=== PATIENT | female | born 1955 | race Caucasian/White ===

== ENCOUNTER 2016-04-17 15:30 | Outpatient (RCR) ==
--- NOTE | 2016-03-27 16:43 | RS.OPPTDN ---
Subjective Date of Note: 03/27/16 Visit #: 11 Date of Evaluation: 02/24/16 Payer Source: MEDICARE Treatment Diagnosis: Right knee pain, knee effusion, knee stiffness, s/p TKA Current Subjective/complaints:: Patient states that she has had increased pain and had redness around the incision over the weekend and yesterday. She explains she had a very busy weekend with watching grandson, attending wedding rehearsal and wedding, with also helping prepare meals. She says she was scared she would have to have her knee manipulated. States she does not take the pain meds prescribed because they make her nauseated (suggested her to call her MD to check if there is any different kind to relieve and prepare her for PT sessions). *Precautions: TKA 02/21/16 Pain Assessment - Pain Description Pain Location: right knee (and right hip during ROM) Pain Description: c/o burning to the R shoulder Current Pain Intensity: Elevated today - Treatment Modality: Electrical Stim Unattended Parameters/Method Applied: hivolt 4 large pads @ 135 pk volts x 20 mins after therex R knee Patient Position: Supine - Heat/Cryotherapy Treatment: Cryotherapy (over knee and lower leg with estim) Interventions - Exercise/Activities/Manual Therapy Exercises/Activities: PROM right knee flexion and extension. Heel cord stretching. AP's, QS, heel slides. SAQ's 4# 3s/10reps. Green theraband for ankle df and ham curls, 3s/10reps each. SLR 2s/10reps. Hip abd 10reps. Green theraband for hip adduction and hip abduction 2s/10reps each. Ham sets with ball under heel. PROM and ham/heel cord stretching in supine. Stretching for knee extension with foot over bolster. In sitting, heel slides, LAQ with 4#, and green theraband for ham curl. No step ups due to increased activity over the past several days. Total minutes of Exercise: 34 Manual Therapy: na HOME EXERCISE PROGRAM: AP's, QS, heel slide, hip abd/add, SAQ's, isometric hip add, sitting heel slides. - Charges Total Direct Minutes: 34 Total Treatment Time: 54 Procedures billed for this date of service:: cp, estim (un), ex2 Assessment: Assumed patient's increased activity load over the weekend probably resulted in her elevated pain. Her knee appears to be only slightly pink along the incision in general, but no significant warmth, swelling, or tenderness to the calf. ROM demonstrates improved flexion, despite c/o's. Patient to contact MD to see if there is any other type of pain meds that could be offered. Patient Education: Education of diagnosis, Body/Joint mechanics, Home Exercise Program, Home Safety, Activity Modification, Education of Plan of Care Patient demonstrates compliance with HEP?: Yes Short Term Goals Goal #1: Pt independent with basic HEP. Goal to be met by: 03/12/16 Progress towards Goal:: Met Goal #2: Right knee extension to -2 degrees. Goal to be met by: 03/12/16 Progress towards Goal:: Progressing Goal #3: Right knee flexion to 105 degrees. Goal to be met by: 03/12/16 Progress towards Goal:: Met Goal #4: Patient to demonstrate good right knee quad control. Goal to be met by: 03/12/16 Progress towards Goal:: Met Group Home Goals Goal #1: Pt knows HEP and to continue with exercises after D/C from therapy. Goal to be met by: 04/12/16 Progress towards goal: Progressing Goal #2: Score on LE functional scale less than 39% impaired. Goal to be met by: 04/12/16 Progress towards goal: Progressing Goal #3: Pt to amb. without an assistive device community distances w/ good safety. Goal to be met by: 04/12/16 (100%) Progress towards goal: Met Goal #4: Right knee AROM WFL's to perform all selfcare and ADL's without difficulty. Goal to be met by: 04/12/16 Progress towards goal: Progressing Plan PLAN OF CARE EXPIRES ON:: 04/12/16 ORDER # VISITS AND/OR THROUGH DATE: 04/12/16 PLAN: Progress Exercises
--- NOTE | 2016-03-28 16:18 | RS.OPPTDN ---
Subjective Date of Note: 03/28/16 Visit #: 12 Date of Evaluation: 02/24/16 Payer Source: MEDICARE Treatment Diagnosis: Right knee pain, knee effusion, knee stiffness, s/p TKA *Precautions: TKA 02/21/16 Pain Assessment - Pain Description Pain Location: right knee (and right hip during ROM) Pain Description: Tightness, Aching Current Pain Intensity: 6/10 Interventions - Exercise/Activities/Manual Therapy Exercises/Activities: PROM right knee flexion and extension. Heel cord stretching. AP's, QS, heel slides. SAQ's 3# 3s/10reps. Green theraband for ankle df and ham curls, 3s/10reps each. SLR 2s/10reps. PROM and ham/heel cord stretching in supine. Stretching for knee extension with foot over bolster. In sitting, heel slides, LAQ with 3#, and green theraband for ham curl. Activity modification was discussed to caution pt not to over work her knee or leg to allow irritation to diminish. She verbalized understanding. Manual Therapy: na HOME EXERCISE PROGRAM: AP's, QS, heel slide, hip abd/add, SAQ's, isometric hip add, sitting heel slides. - Charges Total Direct Minutes: 45 Total Treatment Time: 45 Procedures billed for this date of service:: ther ex X 3 Patient Education: Activity Modification Patient demonstrates compliance with HEP?: Yes Short Term Goals Goal #1: Pt independent with basic HEP. Goal to be met by: 03/12/16 Progress towards Goal:: Met Goal #2: Right knee extension to -2 degrees. Goal to be met by: 03/12/16 Progress towards Goal:: Progressing Goal #3: Right knee flexion to 105 degrees. Goal to be met by: 03/12/16 Progress towards Goal:: Met Goal #4: Patient to demonstrate good right knee quad control. Goal to be met by: 03/12/16 Progress towards Goal:: Met Agency Trainer Goals Goal #1: Pt knows HEP and to continue with exercises after D/C from therapy. Goal to be met by: 04/12/16 Progress towards goal: Progressing Goal #2: Score on LE functional scale less than 39% impaired. Goal to be met by: 04/12/16 Progress towards goal: Progressing Goal #3: Pt to amb. without an assistive device community distances w/ good safety. Goal to be met by: 04/12/16 (100%) Progress towards goal: Met Goal #4: Right knee AROM WFL's to perform all selfcare and ADL's without difficulty. Goal to be met by: 04/12/16 Progress towards goal: Progressing Plan PLAN OF CARE EXPIRES ON:: 04/12/16 ORDER # VISITS AND/OR THROUGH DATE: 04/12/16 PLAN: Continue Plan of Care
--- NOTE | 2016-03-30 17:33 | RS.OPPTDN ---
Subjective Date of Note: 03/30/16 Visit #: 14 Date of Evaluation: 02/24/16 Payer Source: MEDICARE Treatment Diagnosis: Right knee pain, knee effusion, knee stiffness, s/p TKA Current Subjective/complaints:: Patient reports feeling like she needs more therapy. Reports difficulty with prolonged standing and states she has 4 stairs that she has to go up and down to get her mail with no rail. Reports continued pain in the right knee. She feels like her pain is mostly due to a cyst on the posterior-lateral aspect of the knee joint. *Precautions: TKA 02/21/16 Pain Assessment - Pain Description Pain Location: right knee (and right hip during ROM) Pain Description: Tightness, Aching Pain Description: c/o burning to the R shoulder Current Pain Intensity: 09/01 Interventions - Exercise/Activities/Manual Therapy Exercises/Activities: Performs on stationary bike X 6 mins, patient stops due to pain in posterior aspect of the knee. PROM right knee flexion and extension. Heel cord stretching. AP's, QS, heel slides. SAQ's 3# 3s/10reps. Green theraband for ankle df and ham curls, 3s/10reps each. SLR 2s/10reps. PROM and ham/heel cord stretching in supine. Stretching for knee extension with foot over bolster. In sitting, heel slides, LAQ with 3#, and green theraband for ham curls. Grades I-III joint mobs into distraction performed to facilitate increase ROM. Total minutes of Exercise: X 47 mins Manual Therapy: na HOME EXERCISE PROGRAM: AP's, QS, heel slide, hip abd/add, SAQ's, isometric hip add, sitting heel slides. - Objective Findings Observations,measurements,etc.: Right knee active extension to -10 degrees and flexion to 106 degrees. - Charges Total Direct Minutes: 47 mins Total Treatment Time: 53 mins Procedures billed for this date of service:: EX3 Assessment: Patient reports continued knee pain. She demonstrates limited active flexion and extension of the right knee. She continues to be limited with her tolerance for prolonged standing and needs to be able to ascend/ descend her steps at home safely. She demonstrates potential to gain further benefit from skilled therapy for 2-3 more weeks. Patient Education: Education of diagnosis, Body/Joint mechanics, Home Safety, Education of Plan of Care Patient demonstrates compliance with HEP?: Yes Short Term Goals Goal #1: Pt independent with basic HEP. Goal to be met by: 03/12/16 Progress towards Goal:: Met Goal #2: Right knee extension to -2 degrees. Goal to be met by: 04/09/16 Progress towards Goal:: Progressing Goal #3: Right knee flexion to 115 degrees for functional ROM. Goal to be met by: 03/12/16 Progress towards Goal:: Met Goal #4: Patient to demonstrate good right knee quad control. Goal to be met by: 03/12/16 Progress towards Goal:: Met Intermediate Goals Goal #1: Pt knows HEP and to continue with exercises after D/C from therapy. Goal to be met by: 04/20/16 Progress towards goal: Progressing Goal #2: Score on LE functional scale less than 39% impaired. Goal to be met by: 04/20/16 Progress towards goal: Progressing Goal #3: Pt to amb. without an assistive device community distances w/ good safety. Goal to be met by: 04/12/16 (100%) Progress towards goal: Met Goal #4: Right knee AROM WFL's to perform all selfcare and ADL's without difficulty. Goal to be met by: 04/20/16 Progress towards goal: Progressing Plan PLAN OF CARE EXPIRES ON:: 04/20/16 ORDER # VISITS AND/OR THROUGH DATE: 04/20/16 PLAN: Progress Exercises
--- NOTE | 2016-04-02 16:08 | RS.CXNS ---
Date of scheduled appointment: 04/02/16 Type: Cancel Reason for Cancel/NS: Per us due to not receiving continuation order yet
--- NOTE | 2016-04-04 16:36 | RS.OPPTDN ---
Subjective Date of Note: 04/04/16 Visit #: 15 Date of Evaluation: 02/24/16 Payer Source: MEDICARE Treatment Diagnosis: Right knee pain, knee effusion, knee stiffness, s/p TKA Current Subjective/complaints:: Patient says her pain is still behind her knee. Reports she feels if the swelling behind the knee was less, she would be doing quite well. She reports driving today to PT, so she did not take any pain meds. Reports ice/estim nearly takes pain away completely. *Precautions: TKA 02/21/16 Pain Assessment - Pain Description Pain Location: right knee posteriorally (and right hip during ROM) Pain Description: Tightness, Aching Pain Description: c/o burning to the R shoulder Current Pain Intensity: 6/10 - Treatment Modality: Electrical Stim Unattended Parameters/Method Applied: hivolt 4 large pads @ 140 pk volts x 15 mins after therex Patient Position: Supine - Heat/Cryotherapy Treatment: Cryotherapy (ant/post knee) Interventions - Exercise/Activities/Manual Therapy Exercises/Activities: PROM right knee flexion and extension. Heel cord stretching. AP's, QS, heel slides. SAQ's 3# 3s/10reps. Green theraband for ankle df and ham curls, 3s/10reps each. SLR 2s/10reps. PROM and ham/heel cord stretching in supine. Stretching for knee extension with foot over bolster. In sitting, heel slides, LAQ with 3#, and green theraband for ham curls. Grades I- III joint mobs into distraction performed to facilitate increase ROM. Performs on stationary bike X 6 mins, Total minutes of Exercise: 35 Manual Therapy: na HOME EXERCISE PROGRAM: AP's, QS, heel slide, hip abd/add, SAQ's, isometric hip add, sitting heel slides. - Charges Total Direct Minutes: 35 Total Treatment Time: 50 Procedures billed for this date of service:: cp, estim (un), ex2 Assessment: Patient now driving without difficulty, in which she did not take any pain meds. She is benja all progressive stretching well. She is working on stationary bike often at home. Patient Education: Education of diagnosis, Body/Joint mechanics, Home Exercise Program, Home Safety, Activity Modification, Education of Plan of Care Patient demonstrates compliance with HEP?: Yes Short Term Goals Goal #1: Pt independent with basic HEP. Goal to be met by: 03/12/16 Progress towards Goal:: Met Goal #2: Right knee extension to -2 degrees. Goal to be met by: 04/09/16 Progress towards Goal:: Progressing Goal #3: Right knee flexion to 115 degrees for functional ROM. Goal to be met by: 03/12/16 Progress towards Goal:: Met Goal #4: Patient to demonstrate good right knee quad control. Goal to be met by: 03/12/16 Progress towards Goal:: Met Confidential Secretary Goals Goal #1: Pt knows HEP and to continue with exercises after D/C from therapy. Goal to be met by: 04/20/16 Progress towards goal: Progressing Goal #2: Score on LE functional scale less than 39% impaired. Goal to be met by: 04/20/16 Progress towards goal: Progressing Goal #3: Pt to amb. without an assistive device community distances w/ good safety. Goal to be met by: 04/12/16 (100%) Progress towards goal: Met Goal #4: Right knee AROM WFL's to perform all selfcare and ADL's without difficulty. Goal to be met by: 04/20/16 Progress towards goal: Progressing Plan PLAN OF CARE EXPIRES ON:: 04/20/16 ORDER # VISITS AND/OR THROUGH DATE: 04/20/16 PLAN: Progress Exercises
--- NOTE | 2016-04-06 16:25 | RS.OPPTDN ---
Subjective Date of Note: 04/06/16 Visit #: 16 Date of Evaluation: 02/24/16 Payer Source: MEDICARE Treatment Diagnosis: Right knee pain, knee effusion, knee stiffness, s/p TKA Current Subjective/complaints:: Patient says her knee felt really good after the last session. Reports if her pain behind the knee was less or gone, she would be "dancing around." Reports since she is driving, she is not taking pain meds prior to coming to PT. Reports taking pain pill once daily otherwise. She has had increased walking and errand running today, so she does express increased fatigue. *Precautions: TKA 02/21/16 Pain Assessment - Pain Description Pain Location: right knee posteriorally (and right hip during ROM) Pain Description: Tightness, Aching Pain Description: c/o burning to the R shoulder Current Pain Intensity: 09/01 - Treatment Modality: Electrical Stim Unattended Parameters/Method Applied: hivolt 4 pads x 15 mins at end of session @ 125-130 pk volts R knee Patient Position: Supine - Heat/Cryotherapy Treatment: Cryotherapy Interventions - Exercise/Activities/Manual Therapy Exercises/Activities: Begins with stationary bike x 6 mins for/retro. Stretching to right knee flexion and extension. Heel cord stretching. QS, heel slides. SAQ's 3# 3s/10reps. Green theraband for ankle df and ham curls, 3s /10reps each. SLR 2s/10reps. Stretching for knee extension with foot over bolster. Ball squeezes, hip abd. In sitting, heel slides, LAQ with 3#, and green theraband for ham curls. Grades I-III joint mobs into distraction performed to facilitate increase ROM. Performs on stationary bike X 6 mins, Total minutes of Exercise: 35 Manual Therapy: na HOME EXERCISE PROGRAM: AP's, QS, heel slide, hip abd/add, SAQ's, isometric hip add, sitting heel slides. - Charges Total Direct Minutes: 35 Total Treatment Time: 50 Procedures billed for this date of service:: cp, estim(un), ex2 Assessment: Patient has elevated fatigue and soreness remains at the posterior R knee since activity level was more today. Her pain is significantly reduced with modalities today as she does not take pain meds prior due to driving. Patient Education: Education of diagnosis, Body/Joint mechanics, Home Exercise Program, Home Safety, Activity Modification, Education of Plan of Care Patient demonstrates compliance with HEP?: Yes Short Term Goals Goal #1: Pt independent with basic HEP. Goal to be met by: 03/12/16 Progress towards Goal:: Met Goal #2: Right knee extension to -2 degrees. Goal to be met by: 04/09/16 Progress towards Goal:: Progressing Goal #3: Right knee flexion to 115 degrees for functional ROM. Goal to be met by: 03/12/16 Progress towards Goal:: Met Goal #4: Patient to demonstrate good right knee quad control. Goal to be met by: 03/12/16 Progress towards Goal:: Met Detention Goals Goal #1: Pt knows HEP and to continue with exercises after D/C from therapy. Goal to be met by: 04/20/16 Progress towards goal: Progressing Goal #2: Score on LE functional scale less than 39% impaired. Goal to be met by: 04/20/16 Progress towards goal: Progressing Goal #3: Pt to amb. without an assistive device community distances w/ good safety. Goal to be met by: 04/12/16 (100%) Progress towards goal: Met Goal #4: Right knee AROM WFL's to perform all selfcare and ADL's without difficulty. Goal to be met by: 04/20/16 Progress towards goal: Progressing Plan PLAN OF CARE EXPIRES ON:: 04/20/16 ORDER # VISITS AND/OR THROUGH DATE: 04/20/16 PLAN: Progress Exercises
--- NOTE | 2016-04-09 15:27 | RS.CXNS ---
Date of scheduled appointment: 04/09/16 Type: Cancel Reason for Cancel/NS: sick
--- NOTE | 2016-04-10 16:40 | RS.OPPTDN ---
Subjective Date of Note: 04/10/16 Visit #: 17 Date of Evaluation: 02/24/16 Payer Source: MEDICARE Treatment Diagnosis: Right knee pain, knee effusion, knee stiffness, s/p TKA Current Subjective/complaints:: Patient c/o continued posterior knee pain and feels tight. She says she performs HEP and is not resorting to pain meds for her relief. She uses ice prn. *Precautions: TKA 02/21/16 Pain Assessment - Pain Description Pain Location: right knee posteriorally (and right hip during ROM) Pain Description: Tightness, Aching Pain Description: c/o burning to the R shoulder Current Pain Intensity: 09/01 Interventions - Exercise/Activities/Manual Therapy Exercises/Activities: Begins with stationary bike x 6 mins for/retro. Stretching to right knee flexion and extension. Heel cord stretching. Patellar mobs, joint mobs grades I-III, QS, heel slides. SAQ's 3# 3s/10reps. Green theraband for ankle df and ham curls, 3s/10reps each. SLR 2s/10reps. Stretching for knee extension with foot over bolster. Ball squeezes, hip abd. In sitting, heel slides, LAQ with 3#, and green theraband for ham curls. Continued with more stretching in sitting. Measurements taken. Total minutes of Exercise: 38 Manual Therapy: na HOME EXERCISE PROGRAM: AP's, QS, heel slide, hip abd/add, SAQ's, isometric hip add, sitting heel slides. - Objective Findings Observations,measurements,etc.: Flexion to 111 degrees active in 90/90 position supine. Extension -6 degrees - Charges Total Direct Minutes: 38 Total Treatment Time: 38 Procedures billed for this date of service:: ex3 Assessment: Patient jammie improved flexibility after joint/patellar mobs. She maintains no form of pain meds prior to coming to PT and felt no need to have modalities today since she can use ice when she returns home. She demos less swelling to the posterior knee today and less tenderness with palpation throughout the knee with mobs. Less pink in color to the incision and no warmth felt surrounding it. Patient Education: Education of diagnosis, Body/Joint mechanics, Home Exercise Program, Home Safety, Activity Modification, Education of Plan of Care Patient demonstrates compliance with HEP?: Yes Short Term Goals Goal #1: Pt independent with basic HEP. Goal to be met by: 03/12/16 Progress towards Goal:: Met Goal #2: Right knee extension to -2 degrees. Goal to be met by: 04/09/16 Progress towards Goal:: Progressing Goal #3: Right knee flexion to 115 degrees for functional ROM. Goal to be met by: 03/12/16 Progress towards Goal:: Met Comments:: 111 active today Goal #4: Patient to demonstrate good right knee quad control. Goal to be met by: 03/12/16 Progress towards Goal:: Met [facility] Goals Goal #1: Pt knows HEP and to continue with exercises after D/C from therapy. Goal to be met by: 04/20/16 Progress towards goal: Progressing Goal #2: Score on LE functional scale less than 39% impaired. Goal to be met by: 04/20/16 Progress towards goal: Progressing Goal #3: Pt to amb. without an assistive device community distances w/ good safety. Goal to be met by: 04/12/16 (100%) Progress towards goal: Met Goal #4: Right knee AROM WFL's to perform all selfcare and ADL's without difficulty. Goal to be met by: 04/20/16 Progress towards goal: Progressing Plan PLAN OF CARE EXPIRES ON:: 04/20/16 ORDER # VISITS AND/OR THROUGH DATE: 04/20/16 PLAN: Progress Exercises
--- NOTE | 2016-04-13 14:36 | RS.OPPTDN ---
Subjective Date of Note: 04/12/16 Visit #: 18 Date of Evaluation: 02/24/16 Payer Source: MEDICARE Treatment Diagnosis: Right knee pain, knee effusion, knee stiffness, s/p TKA Current Subjective/complaints:: Patient says she has riddin her bike 4 times today. States she is now taking Tylenol for pain and it does help "take the edge off." *Precautions: TKA 02/21/16 Pain Assessment - Pain Description Pain Location: right knee posteriorally (and right hip during ROM) Pain Description: Tightness, Aching Pain Description: c/o burning to the R shoulder Current Pain Intensity: 09/01 Interventions - Exercise/Activities/Manual Therapy Exercises/Activities: Begins with stationary bike x 8 mins for/retro. Stretching to right knee flexion and extension. Heel cord stretching. Patellar mobs, joint mobs grades I-III, QS, heel slides with additional stretch at end range by HE[employer] COIL WINDER. SAQ's 3# 3s/10reps. Green theraband for ankle df and ham curls, 3s/10reps each. SLR 2s/10reps. Hip abd/add xonly 5 due to increased R hip pain. Stretching for knee extension with foot over bolster. Ball squeezes , hip abd. In sitting, heel slides, LAQ with 3#, and green theraband for ham curls. Continued with more stretching in sitting. Standing: hip flexion, ham curls, hip abd. Total minutes of Exercise: 42 Manual Therapy: na HOME EXERCISE PROGRAM: AP's, QS, heel slide, hip abd/add, SAQ's, isometric hip add, sitting heel slides. - Charges Total Direct Minutes: 42 Total Treatment Time: 42 Procedures billed for this date of service:: ex3 Assessment: Patient benja increased flexion stretching today. She still has pain into the R hip during SLR and hip abd causing her to stop at times. She demos improved extension benja with stretching over bolster as well. She is also taking Tylenol prior to PT so that she may withstand progressive stretching. Patient Education: Education of diagnosis, Body/Joint mechanics, Home Exercise Program, Home Safety, Activity Modification, Education of Plan of Care Patient demonstrates compliance with HEP?: Yes Short Term Goals Goal #1: Pt independent with basic HEP. Goal to be met by: 03/12/16 Progress towards Goal:: Met Goal #2: Right knee extension to -2 degrees. Goal to be met by: 04/09/16 Progress towards Goal:: Progressing Goal #3: Right knee flexion to 115 degrees for functional ROM. Goal to be met by: 03/12/16 Progress towards Goal:: Met Goal #4: Patient to demonstrate good right knee quad control. Goal to be met by: 03/12/16 Progress towards Goal:: Met Alf Goals Goal #1: Pt knows HEP and to continue with exercises after D/C from therapy. Goal to be met by: 04/20/16 Progress towards goal: Progressing Goal #2: Score on LE functional scale less than 39% impaired. Goal to be met by: 04/20/16 Progress towards goal: Progressing Goal #3: Pt to amb. without an assistive device community distances w/ good safety. Goal to be met by: 04/12/16 (100%) Progress towards goal: Met Goal #4: Right knee AROM WFL's to perform all selfcare and ADL's without difficulty. Goal to be met by: 04/20/16 Progress towards goal: Progressing Plan PLAN OF CARE EXPIRES ON:: 04/20/16 ORDER # VISITS AND/OR THROUGH DATE: 04/20/16 PLAN: Progress Exercises
--- NOTE | 2016-04-17 16:44 | RS.OPPTDN ---
Subjective Date of Note: 04/17/16 Visit #: 18 Date of Evaluation: 02/24/16 Payer Source: MEDICARE Treatment Diagnosis: Right knee pain, knee effusion, knee stiffness, s/p TKA Current Subjective/complaints:: Patient says she has done really well since having a decadron shot for pleurisy. Reports less swelling to her knee and pain as well as improved mobility. She says even though this was for her lungs , her knee was significantly better. *Precautions: TKA 02/21/16 Pain Assessment - Pain Description Pain Location: right knee posteriorally (and right hip during ROM) Pain Description: Tightness, Aching Pain Description: c/o burning to the R shoulder Current Pain Intensity: very mild to none Interventions - Exercise/Activities/Manual Therapy Exercises/Activities: Begins with stationary bike x 8 mins for/retro. Stretching to right knee flexion and extension. Heel cord stretching. Patellar mobs, joint mobs grades I-III, QS, heel slides with additional stretch at end range by YARN TESTER. SAQ's 3# 3s/10reps. Progressed to blue theraband for ankle df and ham curls, 3s/10reps each. SLR 2s/10reps. Hip abd/add xonly 5 due to increased R hip pain. Stretching for knee extension with foot over bolster. Ball squeezes, hip abd. In sitting, heel slides, LAQ with 3#, and green theraband for ham curls. Continued with more stretching in sitting. Standing: hip flexion, ham curls, hip abd, heel raises. Total minutes of Exercise: 45 Manual Therapy: na HOME EXERCISE PROGRAM: AP's, QS, heel slide, hip abd/add, SAQ's, isometric hip add, sitting heel slides. - Charges Total Direct Minutes: 45 Total Treatment Time: 45 Procedures billed for this date of service:: ex3 Assessment: Patient admits improved pain, mobility, and swelling following decadron injection recently. She demos improved flexion today and less swelling. Improved ease with all advancing therex. Patient Education: Education of diagnosis, Body/Joint mechanics, Home Exercise Program, Home Safety, Activity Modification, Education of Plan of Care Patient demonstrates compliance with HEP?: Yes Short Term Goals Goal #1: Pt independent with basic HEP. Goal to be met by: 03/12/16 Progress towards Goal:: Met Goal #2: Right knee extension to -2 degrees. Goal to be met by: 04/09/16 Progress towards Goal:: Progressing Goal #3: Right knee flexion to 115 degrees for functional ROM. Goal to be met by: 03/12/16 Progress towards Goal:: Met Goal #4: Patient to demonstrate good right knee quad control. Goal to be met by: 03/12/16 Progress towards Goal:: Met Halfway Goals Goal #1: Pt knows HEP and to continue with exercises after D/C from therapy. Goal to be met by: 04/20/16 Progress towards goal: Progressing Goal #2: Score on LE functional scale less than 39% impaired. Goal to be met by: 04/20/16 Progress towards goal: Progressing Goal #3: Pt to amb. without an assistive device community distances w/ good safety. Goal to be met by: 04/12/16 (100%) Progress towards goal: Met Goal #4: Right knee AROM WFL's to perform all selfcare and ADL's without difficulty. Goal to be met by: 04/20/16 Progress towards goal: Progressing Plan PLAN OF CARE EXPIRES ON:: 04/20/16 ORDER # VISITS AND/OR THROUGH DATE: 04/20/16 PLAN: Progress Exercises
--- NOTE | 2016-04-19 15:37 | RS.CXNS ---
Date of scheduled appointment: 04/19/16 Type: Cancel Reason for Cancel/NS: Patient called to cancel saying her MD released her from PT due to progress.
--- NOTE | 2016-04-24 13:18 | RS.OPPTDC ---
Date of Discharge: 04/19/16 Date of Evaluation: 02/24/16 Number of Visits: 17 Treatment Diagnosis: Right knee pain, knee effusion, knee stiffness, s/p TKA Current Complaints/Gains: Patient reports continued burning into the right shoulder. States it is hard for her to remember not to use the right UE since she is right hand dominant. She is very motivated to return to her normal use of the right UE. She reports taking care of her 2 year old grandchild. Pain Assessment - Pain Description Pain Location: right knee posteriorally (and right hip during ROM) Pain Description: Tightness, Aching Pain Description: c/o burning to the R shoulder Current Pain Intensity: very mild to none Functional Outcome Measure LE Functional Scale: 34 (On 03/20/2016) - G Codes & Severity Modifier G Codes & Modifier: DC Status - Mobility - CJ Source of G Code score: Findings on last PT visit. Interventions - Exercise/Activities/Manual Therapy Exercises/Activities: NA Manual Therapy: na HOME EXERCISE PROGRAM: NA - Charges Total Direct Minutes: NA Total Treatment Time: NA Procedures billed for this date of service:: NA Assessment Assessment: Patient did well with skilled PT intervention and was released by her orthopedic surgeon. She is independent with HEP and has resumed her normal activites and caring for her grandchildren. Short Term Goals Goal #1: Pt independent with basic HEP. Goal to be met by: 03/12/16 Progress towards Goal:: Met Goal #2: Right knee extension to -2 degrees. Goal to be met by: 04/09/16 Progress towards Goal:: Progressing Goal #3: Right knee flexion to 115 degrees for functional ROM. Goal to be met by: 03/12/16 Progress towards Goal:: Met Goal #4: Patient to demonstrate good right knee quad control. Goal to be met by: 03/12/16 Progress towards Goal:: Met Long-Term Goals Goal #1: Pt knows HEP and to continue with exercises after D/C from therapy. Goal to be met by: 04/20/16 Progress towards goal: Progressing Goal #2: Score on LE functional scale less than 39% impaired. Goal to be met by: 04/20/16 Progress towards goal: Progressing Goal #3: Pt to amb. without an assistive device community distances w/ good safety. Goal to be met by: 04/12/16 (100%) Progress towards goal: Met Goal #4: Right knee AROM WFL's to perform all selfcare and ADL's without difficulty. Goal to be met by: 04/20/16 Progress towards goal: Progressing Plan Reason for Discharge:: DC per MD release.
== END 2016-04-24 ==
PROVIDERS: ATTEND Orthopaedic Surgery
DX: Z96.651 Presence of right artificial knee joint (principal)

== ENCOUNTER 2016-06-22 10:32 | Outpatient (CLI) ==
--- NOTE | 2016-06-22 12:07 | DI ---
Examination: Seven radiographic images of the cervical spine. Comparison: 05/24/2015. Reason for study: Degenerative disc disease. FINDINGS: Operative changes are seen after anterior cervical discectomy and fusion spanning C3 to C 7. There is no evidence of hardware complication. There is maintenance of the cervical lordotic cu rve. Degenerative changes are seen with exuberant osteophyte formation at C2-C3. The prevertebral soft tissues are within normal limits. The dens is intact on the Lam view. Impression: 1. Stable operative changes after ACDF spanning C3-C7 with degenerative disc disease. 2. No evidence of hardware complication.
--- NOTE | 2016-06-22 12:21 | DI ---
Examination: Five radiographic images of the lumbar spine. Comparison: CT scan performed 09/01/2010. Reason for study: Degenerative disc disease. FINDINGS: No acute fracture or listhesis. Pedicle screw and alin fixation is seen spanning L5-S1. There is no evidence of periprosthetic fracture or hardware complication. The vertebral bodies and intervertebral body disc space heights are well maintained. There is multilevel degenerative disc d isease with anterior osteophyte formation and facet hypertrophy. The lumbar lordotic curve is maint ained. Impression: 1. No acute fracture or listhesis in the lumbar spine. 2. Multilevel degenerative disc disease with osteophyte and facet hypertrophy.
== END 2016-06-22 10:33 | disposition home or self-care (01) ==
LOC: RAD 10:32
PROVIDERS: ATTEND Pain Medicine Interventional Pain Medicine
DX: M96.1 Postlaminectomy syndrome, not elsewhere classified (principal); M50.31 Other cervical disc degeneration, high cervical region; M50.320 Other cervical disc degeneration, mid-cervical region, unspecified level; M51.36 Other intervertebral disc degeneration, lumbar region; M51.37 Other intervertebral disc degeneration, lumbosacral region

== ENCOUNTER 2016-09-07 09:32 | Outpatient (CLI) | payer OTHER ==
--- NOTE | 2016-09-07 10:37 | US ---
EXAM: Right breast ultrasound. History: Follow-up right breast mass. Comparison: Right breast ultrasound 11/19/2014 Technique: Multiple sonographic images through the right breast were obtained. Color duplex Dopple r was used to interrogate vascular flow. Findings: No significant interval change in the benign complicated cyst at 9 o'clock measuring 0.5 cm and no significant interval change in the benign cyst cluster at 6 o'clock measuring 0.5 cm. Impression: No sonographic evidence of malignancy. Recommend return to routine screening mammograp hy schedule. BIRADS 2
--- NOTE | 2016-09-07 10:38 | MAMMO ---
EXAM: Right digital diagnostic mammogram. History: Follow-up right breast mass. Comparison: Bilateral mammogram 01/19/2016 Findings: Right breast density is scattered. Stable benign nodule within the central right breast. There are no suspicious microcalcifications. Impression: No mammographic evidence for malignancy. Recommend return to routine screening mammogr aphy schedule. BIRADS 2
== END 2016-09-07 09:33 | disposition home or self-care (01) ==
LOC: RAD 09:32
PROVIDERS: ATTEND Internal Medicine
DX: R92.8 Other abnormal and inconclusive findings on diagnostic imaging of breast (principal); Z09 Encounter for follow-up examination after completed treatment for conditions other than malignant neoplasm

== ENCOUNTER 2016-09-19 12:09 | Outpatient (CLI) | payer OTHER ==
--- NOTE | 2016-09-19 12:52 | DI ---
EXAM: Chest two view, frontal and lateral views. HISTORY: Cardiomegaly. Cough. COMPARISON: 02/07/2016. FINDINGS: The heart size is normal. There is no pulmonary vascular congestion. The lungs are karlie r save for calcified granulomatous changes. No pleural effusion or pneumothorax is seen. No acute osseous abnormality identified. Degenerative changes present in the spine. ACDF changes noted. Cl ips are present in the upper abdomen. Since the prior study, there has been no significant interval change. IMPRESSION: No acute cardiopulmonary process.
== END 2016-09-19 12:10 | disposition home or self-care (01) ==
LOC: RAD 12:09
PROVIDERS: ATTEND Internal Medicine
DX: I51.7 Cardiomegaly (principal); R05 Cough

== ENCOUNTER 2017-05-20 06:38 | Outpatient (CLI) | END 2017-05-20 06:39 | disposition home or self-care (01) | LOC: CAR 06:38 | PROVIDERS: ATTEND Internal Medicine | DX: R07.9 Chest pain, unspecified (principal); R06.02 Shortness of breath ==

== ENCOUNTER 2017-05-21 06:39 | Outpatient (CLI) | payer OTHER ==
--- NOTE | 2017-05-21 09:44 | STRESSECHO ---
Date of Test: 05/21/2017 Reason for Exam: CHEST PAIN, SHORT OF BREATH, HYPERTENSION, FIBROMYALGIA Ordering Physician: AMBER MAYORGA Current Medications: DEXILANT, HECTOROL, NORCO, PRAVACHOL, ULORIC, WELLBUTRIN, LISINOPRIL, TIZANIDINE Physical Findings: S1, S2, NO S3 Resting EKG: SINUS RHYTHM, NO ACUTE CHANGES Target Heart Rate: 133 Max Heart Rate: 157 S-T SEGMENT STAGE MPH/GRADE HEART RATE BPM BLOOD PRESSURE MMHG RHYTHM 0 +/- ELEVATION DEPRESSION SYMPTOMS,COMMENTS At Rest 73 102/66 SR x NONE 1 1.7/10% 116 112/68 SR X NONE 2 2.5/12% 3 3.4/14% 4 4.2/16% 5 5.0/18% Immediately after 136 SR X SOB Durations of Exercise: 5:46 Maximum Heart Rate Reached: 136 Reason for Termination: SHORT OF BREATH 4 Minutes Post Exercise: HR 80 BPM, BP 118/68 MMHG, SR, +/-, NONE INTERPRETATION: 97% OXYGEN SATURATION WITH EXERCISE ON ROOM AIR 1. NO EVIDENCE OF ISCHEMIA BY ST-T WAVE 2. NO CHEST PAIN OR CHEST DISCOMFORT 3. NO ARRHYTHMIAS 4. BLOOD PRESSURE RESPONSE NORMAL NORMAL LEFT VENTRICULAR CONTRACTILITY RESTING AND POST EXERCISE MTDD
--- NOTE | 2017-05-21 09:48 | ECHOSTRESS ---
Date of Exam: 05/21/2017 Ordering Physician: AMBER MAYORGA Reason for Echo: CHEST PAIN, SHORT OF BREATH, STRESS TEST-NO ISCHEMIA M-Mode Normal Adult Results LV Dimensions Normal Adult Results AoV Opening excursions >1.6 LVEDD-base- 3.5-5.8 Ao root dimensions 2.0-3.7 LVESD-base- 3.1-4.6 L. Atrium dimensions 1.9-3.8 Post. Wall thickness 0.8-1.1 IV septum (thickness) 0.7-1.2 Post. Wall excursion 0.72-1.3 Septal motion Systolic motion R. Ventricular cavity 1.5-2.0 LVEF 60% Paradoxical septal wall motion 2-D: NORMAL LEFT VENTRICULAR CONTRACTILITY RESTING AND POST EXERCISE M-MODE: MV: AV: TV: PV: CHAMBER SIZE: WALL MOTION: NORMAL LEFT VENTRICULAR CONTRACTILITY RESTING AND POST EXERCISE PERICARDIUM: INTERPRETATION: 1. NORMAL LEFT VENTRICULAR CONTRACTILITY RESTING AND POST EXERCISE MTDD
--- NOTE | 2017-05-22 10:07 | MAMMO ---
EXAM: Digital screening mammogram with tomosynthesis and CAD HISTORY: Screening mammogram. COMPARISON: Mammogram 09/07/2016 and 01/19/2016 FINDINGS: Breast density is scattered fibroglandular. The central right breast nodule with small roro cifications is stable. There is no suspicious calcification or new nodule identified. There has been no significant interval change. IMPRESSION: 1. No new or suspicious calcification or nodule. 2. Stable central right breast nodule relatively unchanged since 2014. Recommendation: Annual screening mammogram. BIRADS category II: Benign findings
== END 2017-05-21 06:40 | disposition home or self-care (01) ==
LOC: CAR 06:39
PROVIDERS: ATTEND Internal Medicine
DX: Z12.31 Encounter for screening mammogram for malignant neoplasm of breast (principal); R07.9 Chest pain, unspecified; R06.02 Shortness of breath
CPT/HCPCS: 77067

== ENCOUNTER 2017-07-29 13:33 | Outpatient (CLI) ==
--- NOTE | 2017-07-29 14:33 | US ---
EXAM: Bilateral lower extremity venous doppler. HISTORY: Bilateral lower extremity pain and swelling. COMPARISON: None available. TECHNIQUE: Multiple grayscale and color doppler images were obtained. FINDINGS: There is normal flow, compressibility and augmentation of flow within the right and left c ommon femoral, greater saphenous, profunda, femoral, popliteal, posterior tibial, anterior tibial and peroneal veins. IMPRESSION: No evidence for right or left lower extremity deep vein thrombosis at the levels examined.
[2017-07-29 16:27] VITALS: BMI 39.6
== END 2017-07-29 13:34 | disposition home or self-care (01) ==
LOC: RAD 13:33
PROVIDERS: ATTEND Internal Medicine
DX: M79.89 Other specified soft tissue disorders (principal); M79.605 Pain in left leg; M79.604 Pain in right leg

== ENCOUNTER 2017-07-29 15:24 | Inpatient (IN) ==
[2017-07-29 16:27] VITALS: BMI 39.6
[2017-07-29] MEDS ORDERED: ATROPINE SULFATE PFS IVP PRN (17:08)
[2017-07-29] MEDS ORDERED: VISTARIL INJ IM PRN (17:08)
[2017-07-29] MEDS ORDERED: MORPHINE 4 MG/ML VIAL IVP PRN (17:08)
[2017-07-29] MEDS ORDERED: NITROSTAT SL PRN (17:08)
[2017-07-29] MEDS ORDERED: TYLENOL PO PRN (17:08)
[2017-07-29] MEDS ORDERED: LASIX IVP STA (17:11)
[2017-07-29] MEDS ORDERED: TORADOL IVP PRN (17:14)
[2017-07-29] MEDS ORDERED: NON-FORMULARY MEDICATION (Tizanidine Hcl [Zanaflex] 4 MG) PO PRN (17:39)
[2017-07-29] MEDS ORDERED: ZOFRAN TAB PO PRN (17:39)
[2017-07-29] MEDS ORDERED: NORCO 10-325 PO PRN (17:39)
[2017-07-29] MEDS ORDERED: ROCEPHIN ONE (19:36)
[2017-07-29] MEDS ORDERED: SODIUM CHLORIDE 50 ML IV ONE (19:44)
[2017-07-29] MEDS: ROCEPHIN 1 GM in SODIUM CHLORIDE 50 ML IV SCH (19:54)
[2017-07-29] MEDS ORDERED: WELLBUTRIN XL PO ONE (20:04)
[2017-07-29] MEDS: PRAVACHOL PO SCH (20:38)
[2017-07-29] MEDS: ULORIC PO SCH (20:39)
[2017-07-29] MEDS ORDERED: NON-FORMULARY MEDICATION (Dexlansoprazole [Dexilant] 60 MG) PO SCH (21:00)
[2017-07-29] MEDS ORDERED: WELLBUTRIN SR PO SCH (21:00)
[2017-07-29] MEDS ORDERED: PRAVACHOL PO SCH (21:00)
[2017-07-29] MEDS ORDERED: DOXERCALCIFEROL 1 MCG PO SCH (21:00)
[2017-07-30] MEDS ORDERED: LASIX IVP SCH (06:30)
--- NOTE | 2017-07-30 07:02 | DI ---
EXAM: Single view of the chest. History: Chest pain and edema. Comparison: Chest radiograph 09/19/2016 Findings: Heart size is normal. No focal consolidation. No appreciable pleural fluid and no pneumo thorax. Calcified granulomas again seen within the thorax. Postsurgical changes of the cervical spi ne. Impression: No acute cardiopulmonary process
[2017-07-30] MEDS ORDERED: ZANAFLEX PO PRN (07:23)
[2017-07-30] MEDS ORDERED: TORADOL IVP SCH (08:00)
[2017-07-30] MEDS: VITAMIN D PO SCH (08:59)
[2017-07-30] MEDS: ROCEPHIN 1 GM in SODIUM CHLORIDE 50 ML IV SCH (08:59)
[2017-07-30] MEDS: ZESTRIL PO SCH (08:59)
[2017-07-30] MEDS: ASPIRIN EC PO SCH (08:59)
[2017-07-30] MEDS ORDERED: NON-FORMULARY MEDICATION (Lisinopril [Lisinopril] 20 MG) PO SCH (09:00)
[2017-07-30] MEDS: TORADOL IVP SCH ×3 (09:01→20:47)
--- NOTE | 2017-07-30 10:53 | PCM.PROG ---
Attending Provider: ATTENDING PROVIDER: Dr. AMBER MAYORGA This patient is seen with Cathie Wolfe, Nurse Practitioner. DATE OF SERVICE: 07/30/17 SUBJECTIVE: This 61 year old WHITE/ F was hospitalized 07/29/17. Lying in bed, alert. Leg edema slightly improved. Received IV Lasix today, will change to p.o. tomorrow. REVIEW OF SYSTEMS: CONSTITUTIONAL: No night sweats. No fatigue, malaise, lethargy. No fever or chills. HEENT: Eyes: No visual changes. No eye pain. No eye discharge. ENT: No runny nose. No epistaxis. No sinus pain. No odynophagia. No congestion. RESPIRATORY: No cough, no congestion. No hemoptysis. No shortness of breath. CARDIOVASCULAR: No angina symptoms. No CHF symptoms. No atypical chest pain for CAD. No palpitations. No orthopnea.. GASTROINTESTINAL: No abdominal pain. No nausea or vomiting. No diarrhea or constipation. No hematemesis. No hematochezia. GENITOURINARY: No urgency. No frequency. No dysuria. No hematuria. No obstructive symptoms. No discharge. No pain. No significant abnormal bleeding. MUSCULOSKELETAL: Leg pain. NEUROLOGICAL: Awake, alert, oriented to time, place and person. No headache. No neck pain. No syncope. No seizures. No dizziness. PSYCHIATRIC: Not anxious. No depression. No suicidal thoughts. No homicidal thoughts. SKIN: Leg edema. ENDOCRINE: No unexplained weight loss. No weight gain. HEMATOLOGIC/LYMPHATIC: No anemia. No purpura. No petechiae. No prolonged or excessive bleeding. No palpable lymph nodes. PHYSICAL EXAMINATION: GENERAL: The patient is awake, alert and oriented, lying in bed in no distress. VITAL SIGNS: Temperature 97.8 F, Pulse 87, Respiratory Rate 16, BP 115/57, Pulse Ox 97% HEENT: Head normocephalic, atraumatic. Eyes: Extraocular muscles are intact. Pupils are equal, round and reactive to light and accommodation. Ears: No lesions. Nose appeared normal. Throat: No exudate or erythema. NECK: Supple. No JVD, no carotid bruit. No lymphadenopathy or thyromegaly. LUNGS: Diminished breath sounds. Clear to auscultation. Percussion note normal. Chest symmetrical. HEART: S1, S2, no S3. No murmurs. No cyanosis or clubbing. No ascites. Pulses: Dorsalis pedis and posterior tibial pulses +1 to +2 both sides. ABDOMEN: Soft. Non-tender. Bowel sounds active. No CVA tenderness. No mass felt. EXTREMITIES: +1 edema left lower extremity. Trace right lower extremity. Full range of motion of all extremities, equal. NEUROLOGIC: No focal deficit. Cranial nerves II through XII are grossly intact. No headache, no double vision or headache. SKIN: Not dry. Intact. Turgor-normal. LYMPHATIC: No palpable lymph nodes/no lymphedema. MUSCULOSKELETAL: Normal joints with no swelling. Muscle tone is normal. LAB REVIEW: 07/30/17 01:30 07/30/17 01:30 07/30/17 01:30: Sodium 143, Potassium 3.8, Chloride 103, Carbon Dioxide 26, Anion Gap 17.8, BUN 21 H, Creatinine 1.55 H, Estimated GFR (MDRD) 34.00, BUN/ Creatinine Ratio 13.54, Glucose 83, Calcium 9.6, Total Bilirubin 0.4, AST 16, ALT 13, Alkaline Phosphatase 74, Total Protein 6.6, Albumin 3.5, Globulin 3.1, Albumin/Globulin Ratio 1.13 07/30/17 01:30: WBC 9.44, RBC 4.15 L, Hgb 12.5, Hct 36.4 L, MCV 87.7, MCH 30.1, MCHC 34.3, RDW Coeff of Migd[place] 12.7, Plt Count 298, Immature Gran % (Auto) 0.3, Neut % (Auto) 54.0, Lymph % (Auto) 34.9, [place] % (Auto) 6.6, Eos % (Auto) 3.8, Baso % (Auto) 0.4, Immature Gran # (Auto) 0.0, Neut # (Auto) 5.1, Lymph # (Auto ) 3.3, [place] # (Auto) 0.6, Eos # (Auto) 0.4, Baso # (Auto) 0.0 07/30/17 01:30: Total Creatine Kinase 123, CK-MB (CK-2) 1.3, CK-MB (CK-2) % 1.75202, Troponin I < 0.0100 07/29/17 17:08: Sodium 142, Potassium 4.6, Chloride 107, Carbon Dioxide 25, Anion Gap 14.6, BUN 20 H, Creatinine 1.42 H, Estimated GFR (MDRD) 37.00, BUN/ Creatinine Ratio 14.08, Glucose 82, Calcium 9.3, Total Bilirubin 0.5, AST 15, ALT 12, Alkaline Phosphatase 72, Total Creatine Kinase 125, CK-MB (CK-2) 1.4, CK -MB (CK-2) % 1.73071, Troponin I < 0.0100, Total Protein 6.6, Albumin 3.5, Globulin 3.1, Albumin/Globulin Ratio 1.13, TSH 0.913 07/29/17 17:08: WBC 8.81, RBC 3.96 L, Hgb 11.9 L, Hct 35.2 L, MCV 88.9, MCH 30.1 , MCHC 33.8, RDW Coeff of Migd[place] 12.7, Plt Count 287, Immature Gran % (Auto) 0.2, Neut % (Auto) 53.5, Lymph % (Auto) 37.5, [place] % (Auto) 5.2, Eos % (Auto) 3.0, Baso % (Auto) 0.6, Immature Gran # (Auto) 0.0, Neut # (Auto) 4.7, Lymph # (Auto ) 3.3, [place] # (Auto) 0.5, Eos # (Auto) 0.3, Baso # (Auto) 0.1 ASSESSMENT: 1. Bilateral leg edema improving 2. Leg pain 3. Chronic back pain 4. Chronic kidney disease PLAN: 1. Start Lasix p.o. tomorrow 2. Schedule Toradol IV q.8hr Plan and coordination of the patient's care discussed in the presence of Signs Cleaner and nurse. CONDITION: Stable SCRIBED BY: AKIL COELLO Byproducts Maker scribed while in presence of service performed by Dr. Mayorga/Cathie Wolfe APRN on 07/30/17 ([id number])
[2017-07-30] MEDS: ULORIC PO SCH (19:59)
[2017-07-30] MEDS: PRAVACHOL PO SCH (20:00)
[2017-07-30] MEDS ORDERED: PROTONIX PO SCH (21:00)
[2017-07-30] MEDS ORDERED: DOXERCALCIFEROL 1 MCG PO SCH (21:00)
[2017-07-30] MEDS ORDERED: WELLBUTRIN SR PO SCH (21:00)
[2017-07-31] MEDS: TORADOL IVP SCH ×2 (05:43→12:15)
[2017-07-31] MEDS ORDERED: LASIX TAB PO SCH (06:30)
[2017-07-31] MEDS: ROCEPHIN 1 GM in SODIUM CHLORIDE 50 ML IV SCH (08:52)
[2017-07-31] MEDS: ASPIRIN EC PO SCH (08:56)
[2017-07-31] MEDS: VITAMIN D PO SCH (08:56)
[2017-07-31] MEDS: ZESTRIL PO SCH (08:56)
--- NOTE | 2017-07-31 09:07 | PCM.PROG ---
Attending Provider: ATTENDING PROVIDER: Dr. AMBER MAYORGA DATE OF SERVICE: 07/31/17 SUBJECTIVE: This 61 year old WHITE/ F was hospitalized 07/29/17 with left lower extremity pain with bilateral swelling, more on left than right. Swelling has subsided as well as fluid retention and has lost 13 lbs. REVIEW OF SYSTEMS: CONSTITUTIONAL: No night sweats. No fatigue, malaise, lethargy. No fever or chills. HEENT: Eyes: No visual changes. No eye pain. No eye discharge. ENT: No runny nose. No epistaxis. No sinus pain. No odynophagia. No congestion. RESPIRATORY: No cough, no congestion. No hemoptysis. No shortness of breath. CARDIOVASCULAR: No angina symptoms. No CHF symptoms. No atypical chest pain for CAD. No palpitations. No orthopnea.. GASTROINTESTINAL: No abdominal pain. No nausea or vomiting. No diarrhea or constipation. No hematemesis. No hematochezia. GENITOURINARY: No urgency. No frequency. No dysuria. No hematuria. No obstructive symptoms. No discharge. No pain. No significant abnormal bleeding. MUSCULOSKELETAL: No musculoskeletal pain; no joint swelling. NEUROLOGICAL: Awake, alert, oriented to time, place and person. No headache. No neck pain. No syncope. No seizures. No dizziness. PSYCHIATRIC: Not anxious. No depression. No suicidal thoughts. No homicidal thoughts. SKIN: No rash. No lesions. No wounds. ENDOCRINE: No unexplained weight loss. No weight gain. HEMATOLOGIC/LYMPHATIC: No anemia. No purpura. No petechiae. No prolonged or excessive bleeding. No palpable lymph nodes. PHYSICAL EXAMINATION: GENERAL: The patient is awake, alert and oriented, lying in bed in no distress. VITAL SIGNS: Temperature 97.7 F, Pulse 64, Respiratory Rate 16, BP 122/64, Pulse Ox 96% HEENT: Head normocephalic, atraumatic. Eyes: Extraocular muscles are intact. Pupils are equal, round and reactive to light and accommodation. Ears: No lesions. Nose appeared normal. Throat: No exudate or erythema. NECK: Supple. No JVD, no carotid bruit. No lymphadenopathy or thyromegaly. LUNGS: Clear to auscultation. Percussion note normal. Chest symmetrical. HEART: S1, S2, no S3. No murmurs. No cyanosis or clubbing. No ascites. Pulses: Dorsalis pedis and posterior tibial pulses +1 to +2 both sides. ABDOMEN: Soft. Non-tender. Bowel sounds active. No CVA tenderness. No mass felt. EXTREMITIES: No pedal edema. Full range of motion of all extremities, equal. NEUROLOGIC: No focal deficit. Cranial nerves II through XII are grossly intact. No headache, no double vision or headache. SKIN: Warm and dry. Intact. Turgor-normal. LYMPHATIC: No palpable lymph nodes/no lymphedema. MUSCULOSKELETAL: Normal joints with no swelling. Muscle tone is normal. LAB REVIEW: 07/31/17 04:30 07/31/17 04:30 07/31/17 04:30: Sodium 141, Potassium 3.7, Chloride 101, Carbon Dioxide 26, Anion Gap 17.7, BUN 32 H, Creatinine 2.27 H D, Estimated GFR (MDRD) 22.00, BUN/ Creatinine Ratio 14.09, Glucose 93, Calcium 9.2, Total Bilirubin 0.4, AST 17, ALT 14, Alkaline Phosphatase 70, Total Protein 6.5, Albumin 3.3 L, Globulin 3.2 , Albumin/Globulin Ratio 1.03 07/31/17 04:30: WBC 9.28, RBC 4.29, Hgb 12.9, Hct 38.0, MCV 88.6, MCH 30.1, MCHC 33.9, RDW Coeff of Migd[place] 12.9, Plt Count 317, Immature Gran % (Auto) 0.2, Neut % (Auto) 52.3, Lymph % (Auto) 35.9, [place] % (Auto) 6.0, Eos % (Auto) 5.1, Baso % (Auto) 0.5, Immature Gran # (Auto) 0.0, Neut # (Auto) 4.9, Lymph # (Auto ) 3.3, [place] # (Auto) 0.6, Eos # (Auto) 0.5, Baso # (Auto) 0.1 07/30/17 07:30: Urine Color Light, Urine Clarity Clear, Urine pH 7.0, Ur Specific [place] 1.015, Urine Protein Negative, Urine Glucose (UA) Negative, Urine Ketones Negative, Urine Blood Negative, Urine Nitrite Negative, Urine Bilirubin Negative, Urine Urobilinogen 0.2, Ur Leukocyte Esterase Negative 07/29/17 17:20: Free T3 pg/mL 3.0 ASSESSMENT: 1. Leg edema with fluid retention subsided 2. Kidney function has become abnormal due to aggressive diuretic therapy PLAN: 1. D/C home 2. Advised to rest, keep legs elevated 3. Good nutrition advised 4. Keflex 500 mg b.i.d. for 5 days 5. Continue home medications 6. Will see back in the office on Saturday morning Plan and coordination of the patient's care discussed in the presence of Bilingual Manager and nurse. CONDITION: Stable SCRIBED BY: AKIL COELLO Boom Cat Operator scribed while in presence of service performed by Dr. AMBER MAYORGA on 07/31/17 ([id number])
[2017-07-31 10:38] VITALS: BP 118/66; TEMP 97.9
--- NOTE | 2017-07-31 11:24 | CM.DICTOOL ---
ADMISSION: 07/29/17 15:24 DISCHARGE: JULY 31, 2017 DATE OF SERVICE: 07/31/17 FINAL DIAGNOSIS LEG EDEMA CHRONIC KIDNEY DISEASE STAGE 3 MEDICAL HISTORY: CHRONIC BACK PAIN ANGINA DSYLIPIDEMIA HTN COPD GERD CONSTIPATION OSTEOARTHRITIS DDD OF NECK ENDOMETRIOSIS B 12 DEFICIENCY SURGICAL HISTORY: S/P TONSILLECTOMY CHILD S/P LEFT NEPHRECTOMY S/P DUDLEY AND BSO S/P RIGHT KNEE REPLACEMENT S/P LUMBAR FUSION S/P NECK THAO AND SPACERS S/P APPENDECTOMY S/P CHOLECYSTECTOMY LAST VITALS Temp Pulse Resp BP Pulse Ox 97.7 F 64 16 122/64 96 07/31/17 05:53 07/31/17 05:53 07/31/17 05:53 07/31/17 05:53 07/31/17 05:53 TAKE THESE MEDICATIONS Hydrocodone Bitart/Acetaminophen (Alexander 10-325) 1 tab PO Q4H PRN PRN Reason: MODERATE PAIN Last Admin: 07/29/17 19:44 Dose: 1 tab Bupropion HCl (Wellbutrin Sr) 150 mg PO BEDTIME [facility] Last Admin: 07/30/17 20:00 Dose: 150 mg Cholecalciferol (Vitamin D) 400 unit PO DAILY [facility] Last Admin: 07/31/17 08:56 Dose: 400 unit Febuxostat (Uloric) 40 mg PO BEDTIME [facility] Last Admin: 07/30/17 19:59 Dose: 40 mg Lisinopril (Zestril) 20 mg PO DAILY [facility] Last Admin: 07/31/17 08:56 Dose: 20 mg Non-Formulary Medication (Doxercalciferol [Hectorol]) 1 mcg PO BEDTIME [facility] Last Admin: 07/30/17 20:01 Dose: Not Given Ondansetron HCl (Zofran Tab) 4 mg PO TID PRN PRN Reason: muscle spasms Last Admin: 07/30/17 01:41 Dose: 4 mg Dexilansoprazole (Dexilant) 60 mg PO BEDTIME [facility] Pravastatin Sodium (Pravachol) 40 mg PO BEDTIME [facility] Last Admin: 07/30/17 20:00 Dose: 40 mg Tizanidine HCl (Zanaflex) 4 mg PO Q6H PRN PRN Reason: BACK PAIN/SPASMS MEDICATION CHANGES NONE ALLERGIES No Known Allergies Allergy (Unverified 07/30/17 03:55) NEW PRESCRIPTIONS: KEFLEX 500 MG 1 TWICE A DAY FOR 5 DAYS LASIX 40 MG TAKE 1 DAILY SMOKING: NOT APPLICABLE DISEASE SPECIFIC EDUCATION: MEDICATIONS APPOINTMENT ELEVATE LEGS ABOVE LEVEL OF HIPS WHEN SITTING LAB REVIEW: 07/31/17 04:30 07/31/17 04:30 07/31/17 04:30: Sodium 141, Potassium 3.7, Chloride 101, Carbon Dioxide 26, Anion Gap 17.7, BUN 32 H, Creatinine 2.27 H D, Estimated GFR (MDRD) 22.00, BUN/ Creatinine Ratio 14.09, Glucose 93, Calcium 9.2, Total Bilirubin 0.4, AST 17, ALT 14, Alkaline Phosphatase 70, Total Protein 6.5, Albumin 3.3 L, Globulin 3.2 , Albumin/Globulin Ratio 1.03 07/31/17 04:30: WBC 9.28, RBC 4.29, Hgb 12.9, Hct 38.0, MCV 88.6, MCH 30.1, MCHC 33.9, RDW Coeff of [place] 12.9, Plt Count 317, Immature Gran % (Auto) 0.2, Neut % (Auto) 52.3, Lymph % (Auto) 35.9, [place] % (Auto) 6.0, Eos % (Auto) 5.1, Baso % (Auto) 0.5, Immature Gran # (Auto) 0.0, Neut # (Auto) 4.9, Lymph # (Auto ) 3.3, [place] # (Auto) 0.6, Eos # (Auto) 0.5, Baso # (Auto) 0.1 07/29/17 17:20: Free T3 pg/mL 3.0 PLAN: DISCHARGE HOME DIET: HEART HEALTHY ACTIVITY: GRADUALLY RESUME TOLERATED ELEVATE LEGS ABOVE THE LEVEL OF THE HIPS WHEN SITTING AND WHEN SLEEPING CONTINUE MEDICATIONS LISTED ON NURSING DISCHARGE INFORMATION SHEET AN APPOINTMENT IS SCHEDULED WITH DR. MAYORGA ON July AT 11:30 AM. LABS WILL BE DRAWN IN THE OFFICE. FOLLOW WITH [facility] (JOAO GARCIA APRN) SCHEDULED IN SEPTEMBER. MS. HOOK IS ALERT AND ORIENTED X 3. SHE IS INDEPENDENT WITH ACTIVITIES OF DAILY LIVING. SHE IS AMBULATORY WITHOUT USE OF ASSISTIVE DEVICE. NO ABDOMINAL PAIN OR NAUSEA. MEAL INTAKES 60-100% SINCE HER ADMISSION. SKIN IS IN GOOD CONDITION EXCEPT FOR SLIGHT BRUISING TO THE RIGHT UPPER ARM FROM BUMPING ARM AGAINST THE DOOR. AMBER MAYORGA MD
--- NOTE | 2017-07-31 13:20 | DS ---
DATE OF SERVICE: 07/31/17 FINAL DIAGNOSIS: 1. Leg edema 2. Chronic kidney disease, stage 3 MEDICAL HISTORY: 3. Chronic back pain 4. Angina 5. Dyslipidemia 6. Hypertension 7. COPD 8. GERD 9. Constipation 10.Osteoarthritis 11.DDD of neck 12.Endometriosis 13.B12 Deficiency 14.Status post tonsillectomy as child 15.Left nephrectomy 16.DUDLEY and BSO 17.Right knee replacement 18.Lumbar fusion 19.Neck alin and spacers 20.Appendectomy 21.Cholecystectomy LAST VITALS: Temperature 97.7, pulse 64, respiratory 16, blood pressure 122/64 and pulse ox 96% DISCHARGE INSTRUCTIONS: Discharge home. Continue medications as listed on nursing discharge information sheet. An appointment is scheduled with Dr. Joyce on August 02 at 11:30am. Labs will be drawn in the office. Follow with [facility] ( Jodi Hairston APRN) As scheduled in September. MEDICATIONS AT DISCHARGE: [place] 10-325 one tablet PO Q 4 hours PRN Wellbutrin SR 150mg PO bedtime Vitamin D 400 unit PO daily Uloric 40mg PO bedtime Zestril 20mg PO daily Hectorol 1 mcg PO bedtime Zofran 4mg PO three times a day PRN Dexilant 60mg PO bedtime Pravachol 40mg PO bedtime Zanaflex 4mg PO Q 6 hours PRN ALLERGIES: No known allergies NEW PRESCRIPTIONS: Keflex 500mg twice a day for 5 days Lasix 40mg take one daily DIET INSTRUCTIONS: Heart Healthy ACTIVITY: Gradually resume as tolerated. Elevate legs above the level of the hips when sitting and when sleeping. SMOKING: N/A DISEASE SPECIFIC EDUCATION: Medications Appointment Elevate legs above level of hips when sitting HOSPITAL COURSE: Nerissa Hatch was hospitalized with left lower limb pain along with swelling, the left lower extremity usually swells more than the right. She usually has some swelling in both legs but it was more pronounced after she traveled to [place] and came back, it was air journey. The patient's venous scan was negative. The patient was treated in the hospital with aggressive diuretic therapy with IV Lasix. Legs were elevated. Kidney functions became more abnormal because of aggressive diuresis. The patient had lost practically 10-12 pounds of body fluid. The legs had a trace edema in both lower extremity with no redness, no pain, possibility of cellulitis were entertained which I doubted it but the patient was put on antibiotics. At that time of discharge the patient is feeling a lot better and she is up and about. She is advised to drink fluids. Advised to go back on her own diuretic therapy which she takes Lasix 40mg daily. She is to see me on Saturday day after tomorrow. Advised to drink fluids. The kidney functions were more abnormal than before but that was kind of expected. In any case the condition at the time of discharge is stable. TIME SPENT: More than 60 minutes. DAMIAN
--- NOTE | 2017-07-31 13:21 | PN ---
07/29/17: Level 5 07/30/17: Intermediate 07/31/17: D as in discharge MTDD
== END 2017-07-31 12:35 | disposition home or self-care (01) | DRG 948 ==
LOC: MEDSURG A 15:24
PROVIDERS: ADMIT Internal Medicine; ATTEND Internal Medicine
DX: R60.0 Localized edema (principal); I12.9 Hypertensive chronic kidney disease with stage 1 through stage 4 chronic kidney disease, or unspecified chronic kidney disease; N18.3 Chronic kidney disease, stage 3 (moderate); M79.662 Pain in left lower leg; M54.9 Dorsalgia, unspecified; G89.29 Other chronic pain; I20.9 Angina pectoris, unspecified; I10 Essential (primary) hypertension; E78.5 Hyperlipidemia, unspecified; J44.9 Chronic obstructive pulmonary disease, unspecified; K21.9 Gastro-esophageal reflux disease without esophagitis; K59.00 Constipation, unspecified; M19.90 Unspecified osteoarthritis, unspecified site; M50.30 Other cervical disc degeneration, unspecified cervical region; E53.8 Deficiency of other specified B group vitamins; N80.9 Endometriosis, unspecified; Z79.891 Long term (current) use of opiate analgesic; Z79.899 Other long term (current) drug therapy; Z90.5 Acquired absence of kidney; Z98.1 Arthrodesis status
CPT/HCPCS: 36415; 80053; 81001; 82550; 82553; 84443; 84481; 84484; 85025; 93005; 93010

== ENCOUNTER 2017-10-29 08:46 | Outpatient (CLI) ==
--- NOTE | 2017-10-29 10:19 | US ---
EXAM: Bilateral carotid artery Doppler History: Dizziness. Technique: Multiple sonographic images through the bilateral internal carotid arteries were obtained . Color duplex Doppler was used to interrogate vascular flow. Findings: The right ICA peak systolic velocity is within normal limits measuring 100 cm/sec. The right ICA/cca PSV ratio is normal at 1.1. The right vertebral artery is patent and demonstrates antegrade flow. Batista scale images demonstrate mild to moderate plaque buildup within the right internal carotid arter y. The left ICA peak systolic velocity is within normal limits measuring 80 cm/sec. The left ICA/cca PS V ratio is normal at 1.0. The left vertebral artery is patent and demonstrates antegrade flow. Batsita scale images demonstrate mild plaque buildup within the left internal carotid artery. Impression: No significant hemodynamic stenosis of the bilateral internal carotid arteries.
--- NOTE | 2017-10-31 11:08 | HOLTER ---
PATIENT INFORMATION AND COMMENTS Attending Physician: PRISCILLA MERAZ Indications: PALPITATIONS, DIZZINESS __ Patient Medications: ZANAFLEX, PRAVACHOL, ZOFRAN, LISINOPRIL, NORCO, ULORIC, DEXILANT, KEFLEX, WELLBUTRIN SR __ Pre-procedure Summary: Protocol: Standard Heart Rate Started: 10/29/17919 Minimum: 60 BPM Weight: 226 LBS Ended: 10/30/17919 Maximum: 123 BPM Height: 65" Duration: 24 HOURS Average: 77 BPM _ INTERPRETATIONS/OBSERVATIONS: 1. BASIC RHYTHM: SINUS, RATE 60 BPM TO 120 BPM, AVERAGE 77 BPM 2. RARE TO INFREQUENT PAC'S AND PVC'S 3. ONE RUNE OF 4 BEAT SVT WITH A RATE OF [address]-T WAVE CHANGES FROM BASELINE 5. NO CORRELATION WITH ACTIVITY LOG MTDD
== END 2017-10-29 08:47 | disposition home or self-care (01) ==
LOC: CAR 08:46
PROVIDERS: ATTEND Nurse Practitioner
DX: R42 Dizziness and giddiness (principal); R00.2 Palpitations
CPT/HCPCS: 93227

== ENCOUNTER 2018-04-28 08:10 | Outpatient (CLI) | payer OTHER ==
--- NOTE | 2018-04-28 10:47 | DI ---
EXAM: Seven views of the lumbar spine. History: Lower back pain. Comparison: Lumbar spine radiograph 06/22/2016 Findings: Surgical clips seen within the abdomen. No acute fracture or subluxation of the lumbar sp ine. Stable and grossly intact posterior fusion hardware at L5-S1. Atherosclerotic vascular calcifi cations. Mild to moderate disc space narrowing seen at L1-L2, L2-L3, L3-L4 and L4-L5 with endplate s clerosis and osteophyte formation. No instability identified with flexion or extension. Impression: 1. No acute osseous abnormality of the lumbar spine. 2. Degenerative changes. 3. Grossly intact posterior fusion hardware. 4. No significant interval change compared to the prior study
--- NOTE | 2018-04-28 10:48 | DI ---
EXAM: Cervical spine three views HISTORY: Disc degeneration. FINDINGS: Compared to 06/22/2016. Redemonstration of ACDF extending from C3 through C7. Hardware remains intact. There is no spondylo listhesis. The disc spaces are not clearly delineated and most appear fused. No acute fracture is s een. Lateral masses of C1 and C2 are normally aligned and the odontoid process is intact. IMPRESSION: 1. Stable postop changes of the cervical spine. Demineralization. No acute fracture.
--- NOTE | 2018-04-28 10:49 | DI ---
EXAM: Three views of the thoracic spine. History: Thoracic back pain. Comparison: Thoracic spine radiograph 06/23/2013 Findings: Postsurgical changes of the cervical spine. No acute fracture or subluxation. Moderate m ultilevel disc space narrowing of the thoracic spine with endplate sclerosis and prominent anterior o steophytes slightly progressed compared to the prior study. Impression: 1. No acute osseous abnormality of the thoracic spine. 2. Progressive degenerative disc disease
--- NOTE | 2018-04-28 14:19 | MRI ---
EXAM: Thoracic spine MRI without contrast. HISTORY: Thoracic disc degeneration. COMPARISON: Thoracic spine radiographs 04/28/2018 and the cervical spine radiographs 04/28/2018. TECHNIQUE: Multiplanar, multisequence MR images were acquired of the thoracic spine without contrast . FINDINGS: 12 rib-bearing thoracic vertebra are present. The thoracic cord has normal signal intensi ty. Metallic artifact is present in the cervical spine consistent with ACDF's from C3-4 through C6-7 . The thoracic vertebra are normal in height and intrinsic bone marrow signal. There is minor cervi cothoracic levoscoliosis centered at T3-4 and minor mid cervical dextroscoliosis centered at C6-7. T here is mild chronic anterior wedging of the T5, T6, T8, T11 and T12 vertebra. Intrinsic bone marrow signal is mildly heterogeneous. There are no acute compression fractures. Ventral lateral osteophy joann are present in the thoracic spine and there are moderate right anterolateral endplate osteophytes at T5-6, T6-7, T7-8 and T10-11 and large right anterolateral endplate osteophytes at T8-9 and T11-12 . Multilevel hypertrophic arthropathy is present at the costovertebral articulations. There is mild irregularity of the endplates in the thoracic spine with disc desiccation from T1-2 through T12-L1 a nd there are small chronic Schmorl's nodes at from T5 through T11. There is moderate to marked disc space narrowing that is greatest anteriorly from T5-6 through T7-8. There are no paravertebral david s. A partially visualized liver, spleen and upper pole of the right kidney are unremarkable. C7-T1: There is 2 mm degenerative anterolisthesis of C7 on T1, a diffuse disc bulge and moderate quentin ateral hypertrophic facet arthropathy and ligamentum flavum hypertrophy. This causes moderate bilate ral foraminal stenosis. There is no central canal stenosis. T1-2: There is 1.5 mm anterolisthesis of T1 on T2 and there is a mild spondylotic disc bulge and pro bable small central disc protrusion. Mild right hypertrophic facet arthropathy is present and there is moderate bilateral foraminal stenosis and minor central canal stenosis. AP diameter of the thecal sac is 9.5 mm. T2-3: The intervertebral disc is normal. There is minor left facet arthropathy and mild right hyper trophic facet arthropathy and moderate right neural foraminal stenosis. T3-4: The intervertebral disc is normal. Mild right hypertrophic facet arthropathy is present. The re is mild right neural foraminal stenosis. T4-5: The intervertebral disc is normal. There is moderate right hypertrophic facet arthropathy and severe right neural foraminal stenosis. There is no central canal stenosis. T5-6: There is a posterior disc osteophyte complex that is asymmetric to the left with a more focal left paramidline disc osteophyte complex and small superimposed disc protrusion that mildly indents t he left cord without edema and effaces the left lateral recess where it may adversely contact the tamara tral left T6 nerve root. Mild right facet arthropathy is present. There is mild to moderate right n eural foraminal stenosis. There is no central canal stenosis. T6-7: There is a dorsal spondylotic ridge that is asymmetric to the right with a small right paracen tral disc protrusion. This effaces the right anterior subarachnoid space without central canal steno sis. Bilateral facet arthropathy is present. There is no central canal stenosis or foraminal stenos is. T7-8: There is a minor dorsal spondylotic ridge that is asymmetric to the left with a more focal lef t paracentral component and small left paracentral disc protrusion that mildly indents the left ventr al cord. Mild left hypertrophic facet arthropathy is present without significant foraminal stenosis. T8-9: The intervertebral disc is normal. There is minor bilateral foraminal stenosis. T9-10: The intervertebral disc is normal. Bilateral facet arthropathy is present and there is mild bilateral foraminal stenosis. T10-11: The intervertebral disc is normal. Right hypertrophic facet arthropathy is present and ther e is moderate right and mild to moderate left neural foraminal stenosis. There is no central canal s tenosis. T11-12: The intervertebral disc is normal. Bilateral hypertrophic facet arthropathy and ligamentum flavum hypertrophy is present without central canal stenosis or foraminal stenosis. T12-L1: The intervertebral disc is normal. IMPRESSION: 1. Mild to moderate thoracic degenerative spondylosis with minor spinal stenosis at T1-2. 2. Small disc herniations T5-6, T6-7 and T7-8 and probable small disc herniation T1-2. 3. Multilevel foraminal stenosis. 4. Post remote C3-4 to C6-7 ACDF's.
== END 2018-04-28 08:11 | disposition home or self-care (01) ==
LOC: RAD 08:10
PROVIDERS: ATTEND Pain Medicine Interventional Pain Medicine
DX: M50.31 Other cervical disc degeneration, high cervical region (principal); M50.321 Other cervical disc degeneration at C4-C5 level; M50.322 Other cervical disc degeneration at C5-C6 level; M50.323 Other cervical disc degeneration at C6-C7 level; M96.1 Postlaminectomy syndrome, not elsewhere classified; M51.16 Intervertebral disc disorders with radiculopathy, lumbar region; M51.17 Intervertebral disc disorders with radiculopathy, lumbosacral region; M51.36 Other intervertebral disc degeneration, lumbar region; M51.37 Other intervertebral disc degeneration, lumbosacral region; M46.1 Sacroiliitis, not elsewhere classified; M51.34 Other intervertebral disc degeneration, thoracic region; M51.35 Other intervertebral disc degeneration, thoracolumbar region; M47.814 Spondylosis without myelopathy or radiculopathy, thoracic region; M47.815 Spondylosis without myelopathy or radiculopathy, thoracolumbar region
CPT/HCPCS: 36415; 82565

== ENCOUNTER 2018-04-29 09:10 | Outpatient (CLI) | payer OTHER ==
--- NOTE | 2018-04-29 20:34 | MRI ---
EXAM: Cervical spine MRI without contrast. HISTORY: Cervical disc degeneration. COMPARISON: Cervical spine radiographs 04/28/2018 and 06/22/2016. TECHNIQUE: Multiplanar, multisequence MR images were acquired of the cervical spine without contrast . FINDINGS: The craniocervical junction is unremarkable and the cervical cord has no abnormal T2 hyper intensities. There is straightening of the usual cervical lordosis. There have been remote ACDF's a t C3-4, C4-5, C5-6 and C6-7. Metallic artifact is present consistent with anterior screw and plate f ixation from C3-C7. Large ventral osteophytes are present at C2-3 which has disc desiccation. There are degenerative cysts or erosions in the odontoid process and mild thickening of the transverse lig ament which effaces the ventral thecal sac without spinal stenosis. Intrinsic bone marrow signal is unremarkable. There is a 9.8 mm AP x 8.6 mm TX by 12 mm intermediate and dark T1 and T2 signal lesio n in the inferior right lobe of the thyroid gland that statistically most likely represents an adenom a. Thyroid ultrasound could better define the anatomy. There is hypertrophic arthropathy at sternoc lavicular articulations bilaterally. There is minor mucosal thickening in this sphenoid sinus and kely th maxillary sinuses. Visualized lung apices are clear. C2-3: There is a minor dorsal spondylotic ridge that is asymmetric to the right and mild left facet arthropathy. There is developing ankylosis along the posterolateral C2 and C3 vertebra bilaterally. The left vertebral artery extends slightly more medial than is typical into the left C2-3 neural for amen. There is no central canal stenosis or significant foraminal stenosis. C3-4: There are postoperative ACDF changes and there is bilateral uncovertebral hypertrophy, greater on the right and mild to moderate right foraminal stenosis. There is no central canal stenosis. C4-5: There are postoperative ACDF changes and there is right uncovertebral hypertrophy and minor bi lateral facet arthropathy with partial ankylosis of both facet joints. There is no central canal alan nosis. There is moderate right neural foraminal stenosis. C5-6: There are postoperative ACDF changes and minor bilateral facet arthropathy, greater on the rig ht with partial ankylosis of both facet joints. There is mild to moderate right and minor left neura l foraminal stenosis. There is no central canal stenosis. C6-7: There are postoperative ACDF changes and there is a minor dorsal spondylotic ridge that is asy mmetric to the left. Left uncovertebral hypertrophy is present and there is mild right and minor lef t neural foraminal stenosis. There is no central canal stenosis. C7-T1: There is a mild disc bulge with minor endplate osteophytes and moderate right greater than le ft hypertrophic facet arthropathy. This causes mild left and mild to moderate right neural foraminal stenosis. There is no central canal stenosis. T1-2: There is a dorsal spondylotic disc bulge and mild right and minor left left hypertrophic facet arthropathy with small right and tiny left perineural cysts. There is mild right and mild to modera te left neural foraminal stenosis. There is no central canal stenosis. IMPRESSION: 1. Postoperative ACDF changes from C3-C7 with solid osseous fusion and no central canal stenosis. 2. Multilevel neural foraminal stenosis. 3. 9.8 mm AP by 8.6 mm TX by 12 mm CC right thyroid lesion. Statistically this most likely represen ts an adenoma. Ultrasound would better define the anatomy.
== END 2018-04-29 09:11 | disposition home or self-care (01) ==
LOC: RAD 09:10
PROVIDERS: ATTEND Pain Medicine Interventional Pain Medicine
DX: M50.321 Other cervical disc degeneration at C4-C5 level (principal); M50.322 Other cervical disc degeneration at C5-C6 level; M50.323 Other cervical disc degeneration at C6-C7 level

== ENCOUNTER 2018-05-07 12:21 | Outpatient (CLI) ==
--- NOTE | 2018-05-07 13:43 | DI ---
EXAM: CHEST FRONTAL AND LATERAL VIEWS HISTORY: Dizziness and hypertension. COMPARISON: 07/29/2017 FINDINGS: Heart size and mediastinal contour remain within normal limits. Mild hyperinflation. T here is diffuse, chronic appearing interstitial accentuation. No acute infiltrates are seen. No vas cular congestion. There is no consolidation, visible pleural fluid or pneumothorax. Bones reveal no acute fracture. Postop changes of the cervical spine. IMPRESSION: No acute cardiopulmonary process.
--- NOTE | 2018-05-07 14:58 | US ---
EXAM: Thyroid ultrasound History: Thyroid goiter. Comparison: MRI of the cervical spine 04/29/2018 Technique: Multiple sonographic images through the thyroid gland were obtained. Color duplex Dopple r was used to interrogate vascular flow. Findings: The right lobe of the thyroid measures 5.4 cm x 1.9 cm x 1.1 cm and demonstrates multiple nodules wit h the largest measuring 1.3 cm and demonstrating rim calcification. The thyroid isthmus measures 0.2 cm in thickness. The left lobe of the thyroid measures 4.1 cm x 1.9 cm x 1.2 cm and demonstrates multiple nodules with the largest being solid measuring 1.6 cm. No extrathyroidal masses are identified. The thyroid gland is not hypervascular. Impression: Bilateral thyroid nodules. Recommend follow-up ultrasound in 6 months.
--- NOTE | 2018-05-07 15:02 | US ---
EXAM: ULTRASOUND CAROTID DUPLEX, BILATERAL HISTORY: Dizziness FINDINGS: Batista-scale ultrasound, color Doppler and spectral analysis was performed. Velocities are in meters per second. By batista scale and color Doppler imaging, there were regions of heterogeneous plaque formation identi fied within the carotid bulbs and internal carotid arteries. These regions of plaque appeared to rem ain less than 50% vessel diameter. RIGHT: External carotid artery peak systolic velocity: 0.91 Common carotid artery peak systolic velocity/end diastolic velocity: 0.91/0.2 Internal carotid artery peak systolic velocity: 0.91 ICA/CCA peak systolic velocity ratio: 1.0 ICA end diastolic velocity: 0.27 LEFT: External carotid artery peak systolic velocity: 0.99 Common carotid artery peak systolic velocity/end diastolic velocity: 0.8/0.16 Internal carotid artery peak systolic velocity: 0.88 ICA/CCA peak systolic velocity ratio: 1.1 ICA end diastolic velocity: 0.27 The right and left vertebral arteries were antegrade. IMPRESSION: 1. By batista scale and color Doppler imaging, there were regions of heterogeneous plaque formation wayne ntified within the carotid bulbs and internal carotid arteries. These regions of plaque appeared to remain less than 50% vessel diameter. 2. Internal carotid artery peak systolic velocities and ICA/CCA peak systolic velocity ratios indica te no hemodynamically significant stenosis bilaterally. 3. Both vertebral arteries were antegrade.
== END 2018-05-07 12:22 | disposition home or self-care (01) ==
LOC: RAD 12:21
PROVIDERS: ATTEND Internal Medicine
DX: R42 Dizziness and giddiness (principal); N18.9 Chronic kidney disease, unspecified; I10 Essential (primary) hypertension; E04.9 Nontoxic goiter, unspecified

== ENCOUNTER 2018-05-29 13:52 | Outpatient (CLI) | END 2018-05-29 13:53 | disposition home or self-care (01) | LOC: LAB 13:52 | PROVIDERS: ATTEND Pain Medicine Interventional Pain Medicine | DX: N18.4 Chronic kidney disease, stage 4 (severe) (principal); Z79.02 Long term (current) use of antithrombotics/antiplatelets; F33.1 Major depressive disorder, recurrent, moderate; F11.20 Opioid dependence, uncomplicated; Z79.891 Long term (current) use of opiate analgesic | CPT/HCPCS: 36415; 80053; 82465; 82977; 83615; 84100; 84550; 85025; 93005; 93010 ==